=== PATIENT | female | born 1940 ===

== ENCOUNTER 2018-04-02 09:37 | Emergency (ER) | payer MEDICARE, MEDICAID ==
[2018-04-02 09:56] VITALS: BMI 24.2
[2018-04-02 10:01] VITALS: TEMP 98
--- NOTE | 2018-04-02 11:03 | ED PDOC ---
Arrival/HPI - General Historian: Patient - History of Present Illness Time/Duration: Prior to Arrival Symptom Onset: Sudden Symptom Course: Resolved Quality: Other (seizure) - General Chief Complaint: Seizure Time Seen by Provider: 04/02/18 09:49 - History of Present Illness Narrative History of Present Illness (Text): 04/02/18 11:00 Translation device used: [employer] Patient is a 77 year old danish speaking female with a past medical history of epilepsy presenting to the emergency room after having a witnessed seizure while at her doctor's office. Patient was sitting a chair when she was informed that her BP was elevated. Patient reports becoming nervous and then not remembering what happened. Patient is accompanied by her homemaker, who was with her at the time, states that patient's arms and legs clinched up and she started to seize. She did not lose bladder control or bite/swallow her tongue. She did not experience any shaking. The patient's homemaker and nurse in the room helped lay patient onto the ground. Patient did fall, hit or head or any extremities. Per homemaker, seizure lasted approximately 3-5 minutes. Patient was confused after seizure but has since returned to baseline neurological status. The homemaker reports a recent seizure while at home 2 weeks ago but they did not seek medical treatment because of the patient's known seizure history. Patient has been experiencing seizures more often of late. She has recently seen her neurologist but patient and homemaker do not know any medications. It is unknown if there were any recent medication changes. Patient states she is compliant with her medications. Patient currently has no complaints and states she feels well. Denies fevers, chills, nausea, vomiting, chest pain, shortness of breath, abdominal pain, head pain, extremity pain, no focal weakness or vision changes. (BernaLukas) Past Medical History - Provider Review Nursing Documentation Reviewed: Yes - Reproductive Menopause: Yes - Cardiac Hx Hypertension: Yes - Pulmonary Hx Respiratory Disorders: No - Neurological Hx Seizures: Yes - HEENT Hx HEENT Disorder: No - Renal Hx Renal Disorder: No - Endocrine/Metabolic Hx Endocrine Disorders: No - Hematological/Oncological Hx Blood Disorders: No - Integumentary Hx Dermatological Disorder: No - Musculoskeletal/Rheumatological Hx Osteoporosis: Yes - Gastrointestinal Hx Gastrointestinal Disorders: No - Genitourinary/Gynecological Hx Genitourinary Disorders: No - Psychiatric Hx Anxiety: Yes Hx Depression: Yes Hx Substance Use: No - Surgical History Hx Section: Yes - Anesthesia Hx Anesthesia: Yes Hx Anesthesia Reactions: No Hx Malignant Hyperthermia: No Family/Social History - Physician Review Nursing Documentation Reviewed: Yes Family/Social History: Unknown Family HX Smoking Status: Never Smoked Hx Alcohol Use: No Hx Substance Use: No Allergies/Home Meds Allergies/Adverse Reactions: Allergies No Known Allergies Allergy (Verified 10/11/16 18:51) Home Medications: Home Meds Medication Instructions Recorded Confirmed Alprazolam [Xanax] 0.25 mg PO HS 04/06/14 11/18/14 Dexlansoprazole [Dexilant] 60 mg PO DAILY 04/06/14 11/18/14 Ferrous Sulfate [Ferrous Sulfate] 325 mg PO TID 04/06/14 11/18/14 Lamotrigine [Lamotrigine] 100 mg PO BID 04/06/14 11/18/14 Metoprolol Succinate XL [Toprol XL] 50 mg PO DAILY 04/06/14 11/18/14 Simvastatin [Zocor] 20 mg PO HS 04/06/14 11/18/14 Vitamin B Complex & Vitamin C 1 tab PO DAILY 04/06/14 11/18/14 [Strovite] Alendronate [Fosamax] 70 mg PO Q7D 08/17/14 09/18/15 Alprazolam [Xanax] 0.25 mg PO HS PRN 08/17/14 09/18/15 Escitalopram [Lexapro] 10 mg PO HS 08/17/14 08/15/15 Lisinopril/Hydrochlorothiazide 1 tab PO DAILY 08/17/14 09/18/15 [Lisinopril-Hctz 10-12.5 mg Tab] Metoprolol Succinate XL [Toprol XL] 50 mg PO DAILY 08/17/14 09/18/15 Montelukast [Singulair] 10 mg PO HS 08/17/14 08/15/15 Calcium/Cholecalciferol [Oysco 500 1 tab PO DAILY 11/18/14 11/18/14 + D 500 mg-200 Iu] Docusate [Colace] 100 mg PO BID 11/18/14 11/18/14 Escitalopram [Lexapro] 10 mg PO HS 11/18/14 11/18/14 Lisinopril/Hydrochlorothiazide 1 tab PO DAILY 11/18/14 11/18/14 [Lisinopril-Hydrochlorothiazide 12.5 mg-10 mg] Montelukast [Singulair] 10 mg PO HS 11/18/14 11/18/14 Calcium Carbonate/Vitamin D3 1 tab PO DAILY 09/18/15 09/18/15 [Oysco 500 + D 500 mg-200 Iu] Dexlansoprazole [Dexilant] 60 mg PO DAILY 09/18/15 09/18/15 Ferrous Sulfate [Feosol] 325 mg PO TID 09/18/15 09/18/15 Lamotrigine 150 mg PO BID 09/18/15 09/18/15 Simvastatin 20 mg PO DAILY 09/18/15 09/18/15 Windy S Forte 1 tab PO DAILY 09/18/15 Review of Systems - Physician Review All systems were reviewed & negative as marked: Yes - Review of Systems Constitutional: Normal. absent: Fatigue, Fevers Eyes: Normal. absent: Vision Changes ENT: Normal. absent: Sore Throat, Rhinorrhea Respiratory: Normal. absent: SOB, Cough, Wheezing Cardiovascular: Normal. absent: Chest Pain, Calf Pain, HERRERA Gastrointestinal: Normal. absent: Abdominal Pain, Constipation, Diarrhea, Nausea, Vomiting Genitourinary Female: Normal. absent: Dysuria, Frequency, Hematuria Musculoskeletal: Normal. absent: Arthralgias, Back Pain, Neck Pain, Myalgias Skin: Normal. absent: Rash Neurological: Normal, Seizure. absent: Headache, Dizziness, Focal Weakness, Speech Changes, Disequilibrium Endocrine: Normal. absent: Diaphoresis Hemo/Lymphatic: Normal Psychiatric: Normal. 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 Reactive to light. Normal accommodation b/l) Extroacular Muscles: Present: EOMI Conjunctiva: Present: Normal Mouth: Present: Moist Mucous Membranes, Normal Tounge (no bite cheng) Nose (External): Present: Atraumatic Nose (Internal): Present: Normal Inspection, No Active Bleeding, Moist Neck: Present: Normal Range of Motion. No: Meningeal Signs, MIDLINE TENDERNESS , Paraspinal Tenderness, Lymphadenopathy Respiratory/Chest: Present: Clear to Auscultation, Good Air Exchange. No: Respiratory Distress, Accessory Muscle Use, Wheezes, Rales, Rhonchi, Tachypneic , Tender to Palpation Cardiovascular: Present: Regular Rate and Rhythm, Normal S1, S2. No: Murmurs Abdomen: No: Tenderness, Distention, Peritoneal Signs Back: Present: Normal Inspection Upper Extremity: Present: Normal Inspection, Normal ROM, NORMAL PULSES, Capillary Refill < 2s, Other. No: Cyanosis, Edema, Deformity Lower Extremity: Present: Normal Inspection, NORMAL PULSES, Capillary Refill < 2 s. No: Edema, CALF TENDERNESS, Christ's Sign, Tenderness, Erythema, Deformity Neurological: Present: GCS=15, CN II-XII Intact, Speech Normal, Motor Func Grossly Intact, Normal Cerebellar Funct, Gait Normal (walks with cane at baseline) Skin: Present: Warm, Dry, Normal Color. No: Rashes, Diaphoretic Psychiatric: Present: Alert, Oriented x 3, Normal Insight, Normal Concentration Vital Signs Temp Pulse Resp BP Pulse Ox 04/02/18 12:46 98 F 60 18 156/81 H 98 04/02/18 09:38 98 F 62 20 136/104 H 95 Medical Decision Making Re-evaluation Time: 12:37 Reassessment Condition: Re-examined, Improved - Lab Interpretations I have reviewed the lab results: Yes Interpretation: All labs normal - RAD Interpretation Business Operations Coordinator: Radiologist - EKG Interpretation Interpreted by ED Physician: Yes Type: 12 lead EKG Comparison: Similar to previous EKG (08/15/15) ED Course and Treatment: Patient is a 77 year old female with a hx of epilepsy presenting with witnessed recurrent seizure and reported post-ictal state. Patient has since returned to neurological baseline. Patient currently without complaints, denying any trauma to head or extremities. Patient and homemaker do not remember name of home medications and no record of past medications found. Will check CBC, BMP and repeat head CT as last CT was from 2015. 04/02/18 12:37 Tray Worker used: Lisa Lynch [id number] Patient re-evaluated, still without symptoms. Currently at baseline. Patient walked with cane (baseline) without incident. Discussed results of normal head CT, EKG and labs with patient. Will discharge patient home as these are recurrent known seizures. Called person to notify, Gael Mariscal (son-in-law) Mr. Mariscal states that the patient has been experiencing seizure more frequently recently. She was seen at her neurologist's office yesterday and possibly had her medications changed but he is unsure. He was informed that had Head CT, EKG and blood work, which were all within normal limits, will be discharged home. Patient's homemaker has left. Mr. Mariscal states he will come and pick patient up to take her home as they live together. (Berna,Lukas) Patient is a 77 year old female, whose past medical history includes epilepsy, presenting to the ER with witnessed seizure. Physical exam shows patient is hypertensive; keyhole pupil on right, reactive to light with normal accommodation bilaterally; and no bite cheng to tongue. Patient Seen with Resident: In agreement with resident note which contains more details about the patient. Patient seen and evaluated with resident. Came up with plan and treatment together. (Jose Miguel Vo) - Lab Interpretations Lab Results: 04/02/18 10:00 04/02/18 10:44 Lab Results 04/02/18 10:44: Sodium 141, Potassium 4.4, Chloride 107, Carbon Dioxide 23, Anion Gap 15, BUN 16, Creatinine 0.8, Est GFR ( Amer) > 60, Est GFR (Non- Af Amer) > 60, Random Glucose 90, Calcium 9.2, Phosphorus 3.4, Magnesium 2.0 04/02/18 10:01: POC Glucose (mg/dL) 79 04/02/18 10:00: WBC 6.1, RBC 5.07, Hgb 14.1, Hct 43.4, MCV 85.6, MCH 27.8, MCHC 32.5, RDW 13.3, Plt Count 185, MPV 10.5, Gran % 77.8 H, Lymph % (Auto) 14.9 L, Bremer % (Auto) 5.8, Eos % (Auto) 1.0 L, Baso % (Auto) 0.5, Gran # 4.71, Lymph # ( Auto) 0.9 L, Bremer # (Auto) 0.4, Eos # (Auto) 0.1, Baso # (Auto) 0.03 - RAD Interpretation Narrative RAD Interpretations (Text): 04/02/18 13:[address] w/o: No acute pathology. (Lukas Coronel) Radiology Orders: 04/02/18 10:44 HEAD W/O CONTRAST [CT] Stat - EKG Interpretation EKG Interpretation (Text): 04/02/18 13:12 EKG - NSR @ 65bpm, normal axis, no acute ST segment elevations or depressions. ( Lukas Coronel) Disposition/Present on Arrival - Present on Arrival Any Indicators Present on Arrival: No History of DVT/PE: No History of Uncontrolled Diabetes: No Urinary Catheter: No History of Decub. Ulcer: No History Surgical Site Infection Following: None - Disposition Have Diagnosis and Disposition been Completed?: Yes Disposition Time: 12:51 Patient Plan: Discharge - Disposition Diagnosis: Epileptic seizures Disposition: HOME/ ROUTINE Patient Problems: Current Active Problems Problem Status Onset Epileptic seizures Acute Condition: IMPROVED Discharge Instructions (ExitCare): Seizures, Adult (DC) Additional Instructions: OLVIN SALGUERO, thank you for letting us take care of you today. Your provider was Jose Miguel Vo MD and you were treated for SEIZURE. The emergency medical care you received today was directed at your acute symptoms. If you were prescribed any medication, please fill it and take as directed. It may take several days for your symptoms to resolve. Return to the Emergency Department if your symptoms worsen, do not improve, or if you have any other problems. Please contact your doctor or call one of the physicians/clinics you have been referred to that are listed on the Patient Visit Information form that is included in your discharge packet. Bring any paperwork you were given at discharge with you along with any medications you are taking to your follow up visit. Our treatment cannot replace ongoing medical care by a primary care provider outside of the emergency department. Thank you for allowing the [facility] team to be part of your care today. If you had an X-Ray or CT scan: A Radiologist will review the ED reading if any change in treatment is needed we will contact you. If you had a blood, urine, or wound culture: It will take several days for the results, if any change in treatment is needed we will contact you. If you had an STI test: It will take 48 hours for the results. Please call after 1 week if you have not heard back. Forms: [employer] (Georgian)
[2018-04-02 11:05] LABS: BASO # 0.03 K/mm3 (0.0-2.0); BASO % 0.5 % (0.0-3.0); EOS # 0.1 (0.0-0.7); GRAN # 4.71 (1.4-6.5); GRAN % 77.8 % (50.0-68.0); HEMOGLOBIN 14.1 g/dL (12.0-16.0); LYMPH # 0.9 (1.2-3.4); LYMPH % 14.9 % (22.0-35.0); MEAN CELL VOLUME 85.6 fl (80.0-105.0); MEAN CORPUSCULAR HEMOGLOBIN 27.8 pg (25.0-35.0); MEAN CORPUSCULAR HGB CONC 32.5 g/dl (31.0-37.0); MEAN PLATELET VOLUME 10.5 fl (7.0-11.0); MONO # 0.4 (0.1-0.6); MONO % 5.8 % (1.0-6.0); RBC 5.07 10^6/uL (3.5-6.1); RED CELL DISTRIBUTION WIDTH 13.3 % (11.5-14.5); WHITE BLOOD COUNT 6.1 10^3/ul (4.5-11.0)
--- NOTE | 2018-04-02 11:05 | CT ---
Date of service: 04/02/2018 PROCEDURE: CT HEAD WITHOUT CONTRAST. HISTORY: seizure COMPARISON: None available. TECHNIQUE: Axial computed tomography images were obtained through the head/brain without intravenous contrast. Radiation dose: Total exam DLP = 938 mGy-cm. This CT exam was performed using one or more of the following dose reduction techniques: Automated exposure control, adjustment of the mA and/or kV according to patient size, and/or use of iterative reconstruction technique. FINDINGS: HEMORRHAGE: No intracranial hemorrhage. BRAIN: No mass effect or edema. No atrophy or chronic microvascular ischemic changes. VENTRICLES: Unremarkable. No hydrocephalus. CALVARIUM: Unremarkable. PARANASAL SINUSES: Unremarkable as visualized. No significant inflammatory changes. MASTOID AIR CELLS: Unremarkable as visualized. No inflammatory changes. OTHER FINDINGS: None. IMPRESSION: No acute findings
[2018-04-02 12:01] LABS: BLOOD UREA NITROGEN 16 mg/dL (7-21); CALCIUM 9.2 mg/dL (8.4-10.5); GFR NON-AFRICAN AMERICAN > 60
[2018-04-02 13:20] VITALS: BP 156/81; PULSE 60; RESP 18; O2SAT 98
--- NOTE | 2018-04-02 20:53 | CARD ---
APPROVED REPORT Date of service: 04/02/2018 EKG Measurement Heart [id number] <Conclusion> Normal sinus rhythm Normal ECG
== END 2018-04-02 13:29 | disposition home or self-care (01) ==
LOC: ED 09:37
DX: G40.909 Epilepsy, unspecified, not intractable, without status epilepticus (principal); I10 Essential (primary) hypertension

== ENCOUNTER 2018-08-20 11:08 | Emergency (ER) | payer MEDICARE, MEDICAID ==
[2018-08-20 11:09] VITALS: BMI 24.2
[2018-08-20 11:25] VITALS: RESP 18; TEMP 98.6
--- NOTE | 2018-08-20 11:29 | ED PDOC ---
Arrival/HPI - General Chief Complaint: Syncope Time Seen by Provider: 08/20/18 11:18 Historian: Patient, Boarding Mother - History of Present Illness Narrative History of Present Illness (Text): 08/20/18 11:50 Translation by Henry 77 year old female, primarily Maori speaking whose past medical history includes hypertension, osteoporosis, anxiety, depression, and epilepsy, who presents to the emergency department complaining of chest discomfort s/p having a seizure prior to arrival. 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 She says she was conscious and remembers people trying to talking to her, but could not respond to them during the seizure. However, when the episode finished she had to ask someone what happened to her. She notes that is knows when she is about to have a seizure because she becomes all jittery and is unable to stay still. Patient reports her last seizure was 2 days ago on 07/18/18 and that her neurologist had reduced her seizure medication last year. She d enies any bladder or bowel dysfunction, fevers, chills, headache, dizziness, shortness of breath, dyspnea on exertion, cough, abdominal pain, nausea, vomiting, diarrhea, neck pain, or any other complaint. Time/Duration: Prior to Arrival Symptom Onset: Gradual Symptom Course: Unchanged Activities at Onset: Light Context: Other (store) Past Medical History - Provider Review Nursing Documentation Reviewed: Yes - Cardiac Hx Hypertension: Yes - Pulmonary Hx Respiratory Disorders: No - Neurological Hx Seizures: Yes - HEENT Hx HEENT Disorder: No - Renal Hx Renal Disorder: No - Endocrine/Metabolic Hx Endocrine Disorders: No - Hematological/Oncological Hx Blood Disorders: No - Integumentary Hx Dermatological Disorder: No - Musculoskeletal/Rheumatological Hx Osteoporosis: Yes - Gastrointestinal Hx Gastrointestinal Disorders: No - Genitourinary/Gynecological Hx Genitourinary Disorders: No - Psychiatric Hx Anxiety: Yes Hx Depression: Yes Hx Substance Use: No - Surgical History Hx Section: Yes - Anesthesia Hx Anesthesia: Yes Hx Anesthesia Reactions: No Hx Malignant Hyperthermia: No Family/Social History - Physician Review Nursing Documentation Reviewed: Yes Family/Social History: No Known Family HX Smoking Status: Never Smoked Hx Alcohol Use: No Hx Substance Use: No Allergies/Home Meds Allergies/Adverse Reactions: Allergies No Known Allergies Allergy (Verified 10/11/16 18:51) Home Medications: Home Meds Medication Instructions Recorded Confirmed Alprazolam [Xanax] 0.25 mg PO HS 04/06/14 11/18/14 Dexlansoprazole [Dexilant] 60 mg PO DAILY 04/06/14 11/18/14 Ferrous Sulfate 325 mg PO TID 04/06/14 11/18/14 Lamotrigine 100 mg PO BID 04/06/14 11/18/14 Metoprolol Succinate XL [Toprol XL] 50 mg PO DAILY 04/06/14 11/18/14 Simvastatin [Zocor] 20 mg PO HS 04/06/14 11/18/14 Vitamin B Complex & Vitamin C 1 tab PO DAILY 04/06/14 11/18/14 [Strovite] RX: Alendronate [Fosamax] 70 mg PO Q7D 08/17/14 09/18/15 RX: Alprazolam [Xanax] 0.25 mg PO HS PRN 08/17/14 09/18/15 RX: Escitalopram [Lexapro] 10 mg PO HS 08/17/14 08/15/15 RX: Lisinopril/Hydrochlorothiazide 1 tab PO DAILY 08/17/14 09/18/15 [Lisinopril-Hctz 10-12.5 mg Tab] RX: Metoprolol Succinate XL 50 mg PO DAILY 08/17/14 09/18/15 [Toprol XL] RX: Montelukast [Singulair] 10 mg PO HS 08/17/14 08/15/15 Calcium/Cholecalciferol [Oysco 500 1 tab PO DAILY 11/18/14 11/18/14 + D 500 mg-200 Iu] Docusate [Colace] 100 mg PO BID 11/18/14 11/18/14 Escitalopram [Lexapro] 10 mg PO HS 11/18/14 11/18/14 Lisinopril/Hydrochlorothiazide 1 tab PO DAILY 11/18/14 11/18/14 [Lisinopril-Hydrochlorothiazide 12.5 mg-10 mg] Montelukast [Singulair] 10 mg PO HS 11/18/14 11/18/14 Calcium Carbonate/Vitamin D3 1 tab PO DAILY 09/18/15 09/18/15 [Oysco 500 + D 500 mg-200 Iu] Dexlansoprazole [Dexilant] 60 mg PO DAILY 09/18/15 09/18/15 Ferrous Sulfate [Feosol] 325 mg PO TID 09/18/15 09/18/15 RX: Lamotrigine 150 mg PO BID 09/18/15 09/18/15 RX: Simvastatin 20 mg PO DAILY 09/18/15 09/18/15 Windy S Forte 1 tab PO DAILY 09/18/15 Review of Systems - Physician Review All systems were reviewed & negative as marked: Yes - Review of Systems Constitutional: absent: Fevers Respiratory: absent: SOB, Cough Cardiovascular: Chest Pain Gastrointestinal: absent: Abdominal Pain, Diarrhea, Nausea, Vomiting Genitourinary Female: absent: Dysuria, Frequency Musculoskeletal: Back Pain. absent: Neck Pain Neurological: Seizure. absent: Headache, Dizziness Physical Exam Vital Signs Reviewed: Yes Vital Signs Temp Pulse Resp BP Pulse Ox 08/20/18 11:23 98.6 F 74 18 140/82 97 Temperature: Afebrile Blood Pressure: Normal Pulse: Regular Respiratory Rate: Normal Appearance: Positive for: Well-Appearing, Non-Toxic, Comfortable Pain Distress: None Mental Status: Positive for: Alert and Oriented X 3 Finger Stick Blood Glucose: 131 - Systems Exam Head: Present: Atraumatic, Normocephalic Pupils: Present: Other (surgical right pupil) Extroacular Muscles: Present: EOMI Conjunctiva: Present: Normal Mouth: Present: Moist Mucous Membranes, Normal Tounge (no lesions or laceration to her tongue) Neck: Present: Normal Range of Motion Respiratory/Chest: Present: Clear to Auscultation, Good Air Exchange. No: Respiratory Distress, Accessory Muscle Use Cardiovascular: Present: Regular Rate and Rhythm, Normal S1, S2. No: Murmurs Abdomen: No: Tenderness, Distention, Peritoneal Signs Back: Present: Other (tenderness to the trapezius muscle). No: CVA Tenderness, Midline Tenderness, Paraspinal Tenderness Upper Extremity: Present: Normal Inspection. No: Cyanosis, Edema Lower Extremity: Present: Normal Inspection. No: Edema Neurological: Present: GCS=15, CN II-XII Intact, Speech Normal, Motor Func Grossly Intact, Normal Sensory Function, Normal Cerebellar Funct Skin: Present: Warm, Dry, Normal Color. No: Rashes Psychiatric: Present: Alert, Oriented x 3, Normal Insight, Normal Concentration Medical Decision Making ED Course and Treatment: 08/20/18 12:02 Impression: 77 year old female who presents to the emergency department complaining of chest discomfort. Plan: -- CT head -- EKG -- Labs -- Urinalysis -- Chest X-ray -- Reassess and disposition Prior Visits: Notes and results from previous visits were reviewed. Progress Notes: 08/20/18 13:25 Spoke to Gael Borges, son in law, he doesn't know who her neurologist is or what medication she is on, but he will pick her up and have his , patient's daughter call me back. 08/20/18 15:56 On reassessment, patient is not having seizures in the emergency department. As per daughter, patient sees Dr. Oconnor, Neurologist and she takes Kepra 1250mg BID, as prescribed. Daughter states they have been increasing dosage. 08/20/18 15:[address] Oconnor at this time. Left a voicemail for him. 08/20/18 16:15 Called her doctor, who has not returned call as of 16:15. I am going to discharge patient. Patient has not had any seizures while in emergency department. Daughter and son said they will contact neurologist for further evaluation. 08/20/18 16:40 Patient had seizure in emergency department . Will admit. 08/20/18 16:50 Patient's PMD is Delgado, called Dr. Bonner who asked that I call the hospitalist for admission. 08/20/18 16:55 Case discussed with hospitalist, Dr. Cruz, who accepted pt to his service. - Lab Interpretations I have reviewed the lab results: Yes - RAD Interpretation Narrative RAD Interpretations (Text): 08/20/18 12:[address] reviewed, shows: IMPRESSION: No acute intracranial findings 08/20/18 14:14 Chest X-ray reviewed by radiologist, shows: IMPRESSION: No active disease. Aquatic Biologist: Radiologist - EKG Interpretation EKG Interpretation (Text): 08/20/18 11:28 EKG reviewed by me, shows: NSR at 74bpm, no ST/T wave changes or elevations. Interpreted by ED Physician: Yes Type: 12 lead EKG - Scribe Statement The provider has reviewed the documentation as recorded by the Scribe Breanna Bebawy Provider Scribe Attestation: All medical record entries made by the Scribe were at my direction and personal ly dictated by me. I have reviewed the chart and agree that the record accurately reflects my personal performance of the history, physical exam, medical decision making, and the department course for this patient. I have also personally directed, reviewed, and agree with the discharge instructions and disposition. Disposition/Present on Arrival - Present on Arrival Any Indicators Present on Arrival: No History of DVT/PE: No History of Uncontrolled Diabetes: No Urinary Catheter: No History of Decub. Ulcer: No History Surgical Site Infection Following: None - Disposition Have Diagnosis and Disposition been Completed?: Yes Diagnosis: Seizure Disposition: AGAINST MEDICAL ADVICE Disposition Time: 16:55 Patient Plan: Admission Condition: STABLE Referrals: Toyin Delgado DO [Primary Care Provider] -
[2018-08-20 12:47] LABS: BASO # 0.02 K/mm3 (0.0-2.0); BASO % 0.3 % (0.0-3.0); EOS # 0.1 (0.0-0.7); EOS % 0.7 % (1.5-5.0); HEMOGLOBIN 13.9 g/dL (12.0-16.0); LYMPH # 1.2 (1.2-3.4); LYMPH % 16.9 % (22.0-35.0); MEAN CELL VOLUME 86.9 fl (80.0-105.0); MEAN CORPUSCULAR HEMOGLOBIN 28.4 pg (25.0-35.0); MEAN CORPUSCULAR HGB CONC 32.7 g/dl (31.0-37.0); MONO # 0.5 (0.1-0.6); MONO % 7.1 % (1.0-6.0); RBC 4.89 10^6/uL (3.5-6.1); WHITE BLOOD COUNT 7.2 10^3/uL (4.5-11.0)
--- NOTE | 2018-08-20 12:48 | CT ---
Date of service: 08/20/2018 PROCEDURE: CT HEAD WITHOUT CONTRAST. HISTORY: syncope/seizure COMPARISON: 04/02/2018 TECHNIQUE: Axial computed tomography images were obtained through the head/brain without intravenous contrast. Radiation dose: Total exam DLP = 910.29 mGy-cm. This CT exam was performed using one or more of the following dose reduction techniques: Automated exposure control, adjustment of the mA and/or kV according to patient size, and/or use of iterative reconstruction technique. FINDINGS: HEMORRHAGE: No intracranial hemorrhage. BRAIN: No mass effect or edema. There is mild atrophy. Mild chronic microvascular changes. No acute findings VENTRICLES: Unremarkable. No hydrocephalus. CALVARIUM: Unremarkable. PARANASAL SINUSES: Unremarkable as visualized. No significant inflammatory changes. MASTOID AIR CELLS: Unremarkable as visualized. No inflammatory changes. OTHER FINDINGS: None. IMPRESSION: No acute intracranial findings
[2018-08-20 12:57] LABS: INR 1.1; PARTIAL THROMBOPLASTIN TIME 29.7 Seconds (26.9-38.3); PROTHROMBIN TIME 12.2 SECONDS (9.4-12.5)
[2018-08-20 13:01] LABS: ALB/GLOB RATIO 1.5 (1.1-1.8); ALT/SGPT 22 U/L (7-56); AST/SGOT 37 U/L (14-36); BLOOD UREA NITROGEN 20 mg/dL (7-21); CALCIUM 9.7 mg/dL (8.4-10.5); GFR NON-AFRICAN AMERICAN > 60
[2018-08-20 13:12] LABS: TROPONIN I < 0.01 ng/mL
--- NOTE | 2018-08-20 14:12 | RAD ---
Date of service: 08/20/2018 PROCEDURE: CHEST RADIOGRAPH, 1 VIEW HISTORY: chest pain COMPARISON: None available. FINDINGS: LUNGS: Clear. PLEURA: No pneumothorax or pleural fluid seen. CARDIOVASCULAR: Atherosclerotic calcifications identified primarily aortic arch. No radiographic findings to suggest acute or significant cardiovascular disease. OSSEOUS STRUCTURES: No significant abnormalities. VISUALIZED UPPER ABDOMEN: Normal. OTHER FINDINGS: None. IMPRESSION: No active disease. Concordant results with the preliminary interpretation rendered by the emergency department physician procedure.
[2018-08-20] MEDS ORDERED: levETIRAcetam 1000mg/100ml NS 100 ML IV ONE (16:44)
[2018-08-20] MEDS ORDERED: Sodium Chloride 0.9% 1,000 ML IV SCH (17:30)
--- NOTE | 2018-08-20 18:02 | CP.PCM.HP ---
<Donald Prieto - Last Filed: 08/20/18 18:30> History of Present Illness - History of Present Illness History of Present Illness: Donald Prieto DO, PGY-1 Hospitalist Admission History and Physical for Dr. Kwong CC: seizure HPI: Patient is a 77 year old female with PMH of epilepsy, HTN, osteoporosis, depression/anxiety, and pseudo-seizures who presents to ED with daughter for concern of worsening seizures. She had a seizure earlier this morning at the store and had some post-ichtal confusion afterwards. She did not have any bowel/bladder incontinence at that time. Per her daughter, she follows with Dr. Oconnor, neurologist, regularly and she has been on Keppra 1250 mg BID for the past year. CT head in ED was negative for any trauma. ED planned on discharging patient with outpatient f/u with Dr. Oconnor tomorrow. However, she had a seizure in ED. ED RN reports that during the seizure, patient's eyes were closed and she gripped her fists, but did not have any tonic-clonic type movements. PMD: Delgado Past Medical Hx: epilepsy, HTN, osteoporosis, depression/anxiety, and pseudo- seizures Past Surgical Hx: c/s x 1 Allergies: NKA Home medications: Keppra 1250 mg BID according to ED MD, need to verify with daughter patient pharmacy Family Hx: reviewed, non-contributory Social Hx: no current or prior tobacco, alcohol, or drug use Present on Admission - Present on Admission Any Indicators Present on Admission: No History of DVT/PE: No History of Uncontrolled Diabetes: No Urinary Catheter: No Decubitus Ulcer Present: No Review of Systems - Constitutional Constitutional: absent: Chills, Fever - Cardiovascular Cardiovascular: absent: Chest Pain, Dyspnea - Respiratory Respiratory: absent: Dyspnea, Wheezing - Gastrointestinal Gastrointestinal: absent: Abdominal Pain, Fecal Incontinence, Nausea, Vomiting - Genitourinary Genitourinary: absent: Dysuria, Urinary Incontinence - Neurological Neurological: Abnormal Movements, Other (seizure) Past Patient History - Past Social History Smoking Status: Never Smoked - CARDIAC Hx Hypertension: Yes - PULMONARY Hx Respiratory Disorders: No - NEUROLOGICAL Hx Seizures: Yes - HEENT Hx HEENT Problems: No - RENAL Hx Chronic Kidney Disease: No - ENDOCRINE/METABOLIC Hx Endocrine Disorders: No - HEMATOLOGICAL/ONCOLOGICAL Hx Blood Disorders: No - INTEGUMENTARY Hx Dermatological Problems: No - MUSCULOSKELETAL/RHEUMATOLOGICAL Hx Osteoporosis: Yes - GASTROINTESTINAL Hx Gastrointestinal Disorders: No - GENITOURINARY/GYNECOLOGICAL Hx Genitourinary Disorders: No - PSYCHIATRIC Hx Anxiety: Yes Hx Depression: Yes Hx Substance Use: No - SURGICAL HISTORY Hx Section: Yes - ANESTHESIA Hx Anesthesia: Yes Hx Anesthesia Reactions: No Hx Malignant Hyperthermia: No Meds Allergies/Adverse Reactions: Allergies Allergy/AdvReac Type Severity Reaction Status Date / Time No Known Allergies Allergy Verified 10/11/16 18:51 Physical Exam - Constitutional Additional comments: arousable but drowsy, appears to be in post-ichtal state - Head Exam Head Exam: ATRAUMATIC, NORMOCEPHALIC - Eye Exam Eye Exam: EOMI, PERRL - ENT Exam ENT Exam: Mucous Membranes Moist - Neck Exam Neck exam: Positive for: Full Rom, Normal Inspection - Respiratory Exam Respiratory Exam: Clear to Auscultation Bilateral, NORMAL BREATHING PATTERN. absent: Rales, Rhonchi, Wheezes - Cardiovascular Exam Cardiovascular Exam: REGULAR RHYTHM, RRR, +S1, +S2. absent: Diastolic murmur, Gallop, Rubs, Systolic Murmur - GI/Abdominal Exam GI & Abdominal Exam: Normal Bowel Sounds, Soft. absent: Tenderness - Extremities Exam Extremities exam: Positive for: full ROM. Negative for: pedal edema - Back Exam Back exam: NORMAL INSPECTION - Neurological Exam Neurological exam: Alert, Oriented x3 Additional comments: Muscle strength 5/5 b/l upper and lower extremities - Skin Skin Exam: Dry, Intact, Warm Results - Vital Signs Recent Vital Signs: Last Vital Signs Temp 98.6 F 08/20/18 11:23 Pulse 67 08/20/18 16:06 Resp 18 08/20/18 16:06 BP 126/70 08/20/18 16:06 Pulse Ox 98 08/20/18 16:06 - Labs Result Diagrams: 08/20/18 12:30 08/20/18 12:30 Labs: Laboratory Results - last 24 hr 08/20/18 08/20/18 08/20/18 11:24 12:30 12:30 WBC 7.2 RBC 4.89 Hgb 13.9 Hct 42.5 MCV 86.9 MCH 28.4 MCHC 32.7 RDW 13.0 Plt Count 198 MPV 10.0 Neut % (Auto) 75.0 H Lymph % (Auto) 16.9 L [place] % (Auto) 7.1 H Eos % (Auto) 0.7 L Baso % (Auto) 0.3 Lymph # (Auto) 1.2 [place] # (Auto) 0.5 Eos # (Auto) 0.1 Baso # (Auto) 0.02 Absolute Neuts (auto) 5.36 PT 12.2 INR 1.10 APTT 29.7 Sodium Potassium Chloride Carbon Dioxide Anion Gap BUN Creatinine Est GFR ( Amer) Est GFR (Non-Af Amer) POC Glucose (mg/dL) 131 H Random Glucose Calcium Phosphorus Magnesium Total Bilirubin AST ALT Alkaline Phosphatase Lactate Dehydrogenase Total Creatine Kinase Troponin I Total Protein Albumin Globulin Albumin/Globulin Ratio 08/20/18 12:30 WBC RBC Hgb Hct MCV MCH MCHC RDW Plt Count MPV Neut % (Auto) Lymph % (Auto) [place] % (Auto) Eos % (Auto) Baso % (Auto) Lymph # (Auto) [place] # (Auto) Eos # (Auto) Baso # (Auto) Absolute Neuts (auto) PT INR APTT Sodium 140 Potassium 4.3 Chloride 104 Carbon Dioxide 26 Anion Gap 14 BUN 20 Creatinine 0.8 Est GFR ( Amer) > 60 Est GFR (Non-Af Amer) > 60 POC Glucose (mg/dL) Random Glucose 96 Calcium 9.7 Phosphorus 3.2 Magnesium 2.1 Total Bilirubin 0.5 AST 37 H ALT 22 Alkaline Phosphatase 93 Lactate Dehydrogenase 500 Total Creatine Kinase 67 Troponin I < 0.01 Total Protein 8.4 H Albumin 5.0 H Globulin 3.3 Albumin/Globulin Ratio 1.5 Assessment & Plan - Assessment and Plan (Free Text) Assessment: 77 yo F with PMH of epilepsy, HTN, osteoporosis, depression/anxiety, and pseudo- seizures presented following a seizure this AM and was witnessed to have another seizure in ED. Plan: Recent Seizures Likely 2/2 uncontrolled epileptic disorder but patient also has documented hx of pseudo-seizures Will start Keppra at 1250 mg BID IVPB EEG ordered Aspiration, seizure pxns High fall risk protocol Check CK level in AM Start NS at 100 cc/hr Neuro check q4h Keep NPO pending swallow evaluation in AM Hx HTN Per EMR, patient has been on lisinopril/HCTZ and toprol xl on prior admissions Continue to monitor BP Restart home BP meds as needed DVT/GI PPX: Lovenox/protonix Full Code NPO pending swallow eval Monitor on remote tele Patient seen, examined, and plan discussed with my attending Dr. Elenita Prieto D.O. IM Resident PGY-1 <Zoila Kwong - Last Filed: 08/21/18 07:58> Results - Vital Signs Recent Vital Signs: Last Vital Signs Temp 98.6 F 08/20/18 11:23 Pulse 68 08/20/18 19:50 Resp 18 08/20/18 19:50 BP 130/84 08/20/18 19:50 Pulse Ox 100 08/20/18 19:50 - Labs Result Diagrams: 08/20/18 12:30 08/20/18 12:30 Labs: Laboratory Results - last 24 hr 08/20/18 08/20/18 08/20/18 11:24 12:30 12:30 WBC 7.2 RBC 4.89 Hgb 13.9 Hct 42.5 MCV 86.9 MCH 28.4 MCHC 32.7 RDW 13.0 Plt Count 198 MPV 10.0 Neut % (Auto) 75.0 H Lymph % (Auto) 16.9 L [place] % (Auto) 7.1 H Eos % (Auto) 0.7 L Baso % (Auto) 0.3 Lymph # (Auto) 1.2 [place] # (Auto) 0.5 Eos # (Auto) 0.1 Baso # (Auto) 0.02 Absolute Neuts (auto) 5.36 PT 12.2 INR 1.10 APTT 29.7 Sodium Potassium Chloride Carbon Dioxide Anion Gap BUN Creatinine Est GFR ( Amer) Est GFR (Non-Af Amer) POC Glucose (mg/dL) 131 H Random Glucose Calcium Phosphorus Magnesium Total Bilirubin AST ALT Alkaline Phosphatase Lactate Dehydrogenase Total Creatine Kinase Troponin I Total Protein Albumin Globulin Albumin/Globulin Ratio 08/20/18 12:30 WBC RBC Hgb Hct MCV MCH MCHC RDW Plt Count MPV Neut % (Auto) Lymph % (Auto) [place] % (Auto) Eos % (Auto) Baso % (Auto) Lymph # (Auto) [place] # (Auto) Eos # (Auto) Baso # (Auto) Absolute Neuts (auto) PT INR APTT Sodium 140 Potassium 4.3 Chloride 104 Carbon Dioxide 26 Anion Gap 14 BUN 20 Creatinine 0.8 Est GFR ( Amer) > 60 Est GFR (Non-Af Amer) > 60 POC Glucose (mg/dL) Random Glucose 96 Calcium 9.7 Phosphorus 3.2 Magnesium 2.1 Total Bilirubin 0.5 AST 37 H ALT 22 Alkaline Phosphatase 93 Lactate Dehydrogenase 500 Total Creatine Kinase 67 Troponin I < 0.01 Total Protein 8.4 H Albumin 5.0 H Globulin 3.3 Albumin/Globulin Ratio 1.5 Attending/Attestation - Attestation I have personally seen and examined this patient.: Yes I have fully participated in the care of the patient.: Yes I have reviewed all pertinent clinical information: Yes Notes (Text): 08/21/18 07:55 Attending note; Patient seen and examined with resident in ER. Patient is alert and awake. Primarily [place]-speaking. Following commands. Moving all the extremities. No injury noted. Patient is a 77-year-old female with PMH of epilepsy, HTN, osteoporosis, depression/anxiety, and pseudo-seizures who presents to ED with daughter for concern of worsening seizures. She had a seizure earlier this morning at the store and had some post-ictal confusion afterwards. She did not have any bowel/bladder incontinence at that time. Patient had a moment of unresponsiveness in the ER. No tonic-clonic convulsions noted. No tongue bite. No bowel or urinary incontinence. No obvious injury noted. No fall. Patient is currently alert and awake. 1. Recurrent seizure versus pseudoseizures; patient is currently getting IV Keppra. IV Ativan when necessary. Patient usually follows up with neurologist . Will discuss with family in detail. Neurology evaluation requested. 2. Keep patient nothing by mouth until completely alert and awake. 3. Start IV fluids. 4. Fall, seizure, aspiration precautions. Elevate head end to avoid aspiration. Monitor closely. Upon discharge patient will follow up with PMD Dr. Delgado and neurology Dr. Syed gardner. 08/21/18 07:58
--- NOTE | 2018-08-20 20:02 | CP.PCM.DIS ---
<Donald Prieto - Last Filed: 08/20/18 19:58> Provider - Provider Date of Admission: 08/20/18 17:01 Attending physician: Zoila Kwong MD Primary care physician: Toyin Delgado DO Consults: 08/20/18 17:25 Physician Consult Routine Comment: Consulting Provider: Darcy Chapa Consulting Physician: Darcy Chapa Reason for Consult: seizure disorder Time Spent in preparation of Discharge (in minutes): 35 Diagnosis - Discharge Diagnosis (1) Seizure Status: Acute Hospital Course - Lab Results Lab Results: Most Recent Lab Values WBC 7.2 10^3/uL (4.5-11.0) 08/20/18 12:30 RBC 4.89 10^6/uL (3.5-6.1) 08/20/18 12:30 Hgb 13.9 g/dL (12.0-16.0) 08/20/18 12:30 Hct 42.5 % (36.0-48.0) 08/20/18 12:30 MCV 86.9 fl (80.0-105.0) 08/20/18 12:30 MCH 28.4 pg (25.0-35.0) 08/20/18 12:30 MCHC 32.7 g/dl (31.0-37.0) 08/20/18 12:30 RDW 13.0 % (11.5-14.5) 08/20/18 12:30 Plt Count 198 10^3/uL (120.0-450.0) 08/20/18 12:30 MPV 10.0 fl (7.0-11.0) 08/20/18 12:30 Neut % (Auto) 75.0 % (50.0-68.0) H 08/20/18 12:30 Lymph % (Auto) 16.9 % (22.0-35.0) L 08/20/18 12:30 [place] % (Auto) 7.1 % (1.0-6.0) H 08/20/18 12:30 Eos % (Auto) 0.7 % (1.5-5.0) L 08/20/18 12:30 Baso % (Auto) 0.3 % (0.0-3.0) 08/20/18 12:30 Lymph # (Auto) 1.2 (1.2-3.4) 08/20/18 12:30 [place] # (Auto) 0.5 (0.1-0.6) 08/20/18 12:30 Eos # (Auto) 0.1 (0.0-0.7) 08/20/18 12:30 Baso # (Auto) 0.02 K/mm3 (0.0-2.0) 08/20/18 12:30 Absolute Neuts (auto) 5.36 (1.4-6.5) 08/20/18 12:30 PT 12.2 SECONDS (9.4-12.5) 08/20/18 12:30 INR 1.10 08/20/18 12:30 APTT 29.7 Seconds (26.9-38.3) 08/20/18 12:30 Sodium 140 mmol/L (132-148) 08/20/18 12:30 Potassium 4.3 mmol/L (3.6-5.0) 08/20/18 12:30 Chloride 104 mmol/L (98-107) 08/20/18 12:30 Carbon Dioxide 26 mmol/L (21-33) 08/20/18 12:30 Anion Gap 14 (10-20) 08/20/18 12:30 BUN 20 mg/dL (7-21) 08/20/18 12:30 Creatinine 0.8 mg/dl (0.7-1.2) 08/20/18 12:30 Est GFR ( Amer) > 60 08/20/18 12:30 Est GFR (Non-Af Amer) > 60 08/20/18 12:30 POC Glucose (mg/dL) 131 mg/dL (65-110) H 08/20/18 11:24 Random Glucose 96 mg/dL (70-110) 08/20/18 12:30 Calcium 9.7 mg/dL (8.4-10.5) 08/20/18 12:30 Phosphorus 3.2 mg/dL (2.5-4.5) 08/20/18 12:30 Magnesium 2.1 mg/dL (1.7-2.2) 08/20/18 12:30 Total Bilirubin 0.5 mg/dL (0.2-1.3) 08/20/18 12:30 AST 37 U/L (14-36) H 08/20/18 12:30 ALT 22 U/L (7-56) 08/20/18 12:30 Alkaline Phosphatase 93 U/L (38-126) 08/20/18 12:30 Lactate Dehydrogenase 500 U/L (333-699) 08/20/18 12:30 Total Creatine Kinase 67 U/L (35-230) 08/20/18 12:30 Troponin I < 0.01 ng/mL 08/20/18 12:30 Total Protein 8.4 g/dL (5.8-8.3) H 08/20/18 12:30 Albumin 5.0 g/dL (3.0-4.8) H 08/20/18 12:30 Globulin 3.3 gm/dL 08/20/18 12:30 Albumin/Globulin Ratio 1.5 (1.1-1.8) 08/20/18 12:30 - Hospital Course Hospital Course: After discussion with daughter, patient desires to sign out against medical advice. On exam, patient is now A/o x 3, sitting up without assistance, moving all extremities spontaneously. Patient lives with her daughter and does not drive. She was instructed to follow up with her primary neurologist as soon as possible. She was advised that severe, uncontrolled seizures may lead to . Patient desires to sign out AMA. Appropriate forms were signed. Donald Prieto DO IM Resident PGY-1 Discharge Exam - Head Exam Head Exam: ATRAUMATIC, NORMOCEPHALIC Additional comments: seen sitting OOB in chair with daughter. Gait stable, no abnormal movements. Muscle strength 5/5 b/l. Other physical exam as in previous note. Discharge Plan - Follow Up Plan Condition: STABLE Disposition: AGAINST MEDICAL ADVICE Referrals: Toyin Delgado DO [Primary Care Provider] - <Zoila Kwong - Last Filed: 08/21/18 08:00> Provider - Provider Primary care physician: Toyin Delgado DO Consults: 08/20/18 17:25 Physician Consult Routine Comment: Consulting Provider: Darcy Chapa Consulting Physician: Darcy Chapa Reason for Consult: seizure disorder Hospital Course - Lab Results Lab Results: Most Recent Lab Values WBC 7.2 10^3/uL (4.5-11.0) 08/20/18 12:30 RBC 4.89 10^6/uL (3.5-6.1) 08/20/18 12:30 Hgb 13.9 g/dL (12.0-16.0) 08/20/18 12:30 Hct 42.5 % (36.0-48.0) 08/20/18 12:30 MCV 86.9 fl (80.0-105.0) 08/20/18 12:30 MCH 28.4 pg (25.0-35.0) 08/20/18 12:30 MCHC 32.7 g/dl (31.0-37.0) 08/20/18 12:30 RDW 13.0 % (11.5-14.5) 08/20/18 12:30 Plt Count 198 10^3/uL (120.0-450.0) 08/20/18 12:30 MPV 10.0 fl (7.0-11.0) 08/20/18 12:30 Neut % (Auto) 75.0 % (50.0-68.0) H 08/20/18 12:30 Lymph % (Auto) 16.9 % (22.0-35.0) L 08/20/18 12:30 [place] % (Auto) 7.1 % (1.0-6.0) H 08/20/18 12:30 Eos % (Auto) 0.7 % (1.5-5.0) L 08/20/18 12:30 Baso % (Auto) 0.3 % (0.0-3.0) 08/20/18 12:30 Lymph # (Auto) 1.2 (1.2-3.4) 08/20/18 12:30 [place] # (Auto) 0.5 (0.1-0.6) 08/20/18 12:30 Eos # (Auto) 0.1 (0.0-0.7) 08/20/18 12: Baso # (Auto) 0.02 K/mm3 (0.0-2.0) 08/20/18 12:30 Absolute Neuts (auto) 5.36 (1.4-6.5) 08/20/18 12:30 PT 12.2 SECONDS (9.4-12.5) 08/20/18 12:30 INR 1.10 08/20/18 12:30 APTT 29.7 Seconds (26.9-38.3) 08/20/18 12:30 Sodium 140 mmol/L (132-148) 08/20/18 12:30 Potassium 4.3 mmol/L (3.6-5.0) 08/20/18 12:30 Chloride 104 mmol/L (98-107) 08/20/18 12:30 Carbon Dioxide 26 mmol/L (21-33) 08/20/18 12:30 Anion Gap 14 (10-20) 08/20/18 12:30 BUN 20 mg/dL (7-21) 08/20/18 12:30 Creatinine 0.8 mg/dl (0.7-1.2) 08/20/18 12:30 Est GFR ( Amer) > 60 08/20/18 12:30 Est GFR (Non-Af Amer) > 60 08/20/18 12:30 POC Glucose (mg/dL) 131 mg/dL (65-110) H 08/20/18 11:24 Random Glucose 96 mg/dL (70-110) 08/20/18 12:30 Calcium 9.7 mg/dL (8.4-10.5) 08/20/18 12:30 Phosphorus 3.2 mg/dL (2.5-4.5) 08/20/18 12:30 Magnesium 2.1 mg/dL (1.7-2.2) 08/20/18 12:30 Total Bilirubin 0.5 mg/dL (0.2-1.3) 08/20/18 12:30 AST 37 U/L (14-36) H 08/20/18 12:30 ALT 22 U/L (7-56) 08/20/18 12:30 Alkaline Phosphatase 93 U/L (38-126) 08/20/18 12:30 Lactate Dehydrogenase 500 U/L (333-699) 08/20/18 12:30 Total Creatine Kinase 67 U/L (35-230) 08/20/18 12:30 Troponin I < 0.01 ng/mL 08/20/18 12:30 Total Protein 8.4 g/dL (5.8-8.3) H 08/20/18 12:30 Albumin 5.0 g/dL (3.0-4.8) H 08/20/18 12:30 Globulin 3.3 gm/dL 08/20/18 12:30 Albumin/Globulin Ratio 1.5 (1.1-1.8) 08/20/18 12:30 Attending/Attestation - Attestation I have personally seen and examined this patient.: No I have fully participated in the care of the patient.: No I have reviewed all pertinent clinical information, including history, physical exam and plan: No Notes (Text): 08/21/18 07:59 Attending note; Patient was admitted earlier on 08/20/18 evening. Patient signed AGAINST MEDICAL ADVICE later. Patient went home with daughter. Patient was advised to follow-up with her neurologist by on-call residents. Risks of signing AMA advised Residents.
[2018-08-20 20:05] VITALS: BP 130/84; PULSE 68; O2SAT 100
[2018-08-20] MEDS ORDERED: levETIRAcetam 1,250 MG in Sodium Chloride 0.9% 100 ML IVPB SCH (22:00)
--- NOTE | 2018-08-21 01:02 | CARD ---
APPROVED REPORT Date of service: 08/20/2018 EKG Measurement Heart [id number] <Conclusion> Normal sinus rhythm Minor intraventricular conduction delay of RBBB type Normal ECG
[2018-08-21] MEDS ORDERED: Enoxaparin 40 mg Syringe SC SCH (10:00)
== END 2018-08-20 19:50 | disposition left against medical advice (07) ==
LOC: ED 11:08 → UNDOADMIN 17:01 → ERH 17:01
DX: R56.9 Unspecified convulsions (principal); I10 Essential (primary) hypertension; M81.0 Age-related osteoporosis without current pathological fracture
CPT/HCPCS: 70450; 71045; 80053; 82550; 82948; 83615; 83735; 84100; 84484; 85025; 85610; 85730; 93005; 96374; 99285; J1953; J7030